=== PATIENT | male | born 1960 | race Caucasian/White ===

== ENCOUNTER → 2016-06-21 | Outpatient (CLI) | payer OTHER ==
--- NOTE | 2016-06-21 13:04 | MR ---
EXAMINATION TYPE: MR cervical spine wo con DATE OF EXAM: 06/21/2016 12:43 PM COMPARISON: 06/23/2014 HISTORY: Cervicalgia TECHNIQUE: Multiplanar, multisequence images of the cervical spine were acquired. C2-C3: No evidence for degenerative disc disease. No disc bulge/herniation or protrusion. No Canal st enosis. Foramina are patent bilaterally. C3-C4: No evidence for degenerative disc disease. No disc bulge/herniation or protrusion. No Canal st enosis. Uncovertebral joint hypertrophy greater on the left results in mild left foraminal encroachme nt. C4-C5: Mild disc desiccation. Mild posterior disc bulge with minimal effacement ventral thecal sac. N o evidence for herniation protrusion or central stenosis. Uncovertebral joint hypertrophy with right foraminal encroachment. C5-C6: Moderate disc desiccation with associated spurring. There is effacement of the ventral thecal sac. Mild central stenosis is present. Broad-based disc bulging capped by spur appears stable.. Bilat eral foraminal encroachment. Minimal anterolisthesis. C6-C7: Moderate disc desiccation with circumferential disc bulge. Mild effacement ventral thecal sac. No evidence for central stenosis or disc herniation. Uncovertebral joint hypertrophy resulting in mi ld bilateral foraminal encroachment. C7-T1: No evidence for degenerative disc disease. No disc bulge/herniation or protrusion. No Canal st enosis. Foramina are patent bilaterally. Cervical segments are intact. Scattered degenerative endplat e marrow change. There is normal alignment. Cervical spinal cord is of normal signal. Craniovertebral junction relationships are within normal limits. IMPRESSION: 1. Multilevel degenerative disc disease and spondylosis. 2. Stable mild central stenosis at C5-C6. 3. Multilevel foraminal encroachment as noted.
== END | disposition home or self-care (01) ==
LOC: RADMRIMAIN 12:13
PROVIDERS: ATTEND Nurse Practitioner Acute Care
DX: M48.02 Spinal stenosis, cervical region (principal); M50.30 Other cervical disc degeneration, unspecified cervical region; M47.812 Spondylosis without myelopathy or radiculopathy, cervical region
CPT/HCPCS: 72141

== ENCOUNTER → 2018-01-28 | Outpatient (CLI) | payer OTHER ==
[2018-01-28 14:38] LABS: HCT 45.9 % (39.0-53.0); HGB 14.8 gm/dL (13.0-17.5); MCH 30.5 pg (25.0-35.0); MCHC 32.1 g/dL (31.0-37.0); MCV 94.9 fL (80.0-100.0); Platelet Count 338 k/uL (150-450); RBC 4.84 m/uL (4.30-5.90); RDW 14.4 % (11.5-15.5)
[2018-01-28 14:43] LABS: Partial Thromboplastin Time 25.7 sec (22.0-30.0); Prothrombin Time 10.8 sec (9.0-12.0)
[2018-01-28 15:03] LABS: Appearance,Urine Clear (Clear); Bilirubin,Urine Negative (Negative); Blood,Urine Negative (Negative); Color,Urine Yellow; Glucose,Urine (UA) Negative (Negative); Ketones,Urine Trace (Negative); Leukocyte Esterase,Urine Negative (Negative); Mucus,Urine Few /hpf; Nitrite,Urine Negative (Negative); PH, Urine 6.5 (5.0-8.0); Protein,Urine 1+ (Negative); RBC,Urine 2 /hpf (0-5); Specific Gravity,Urine 1.023 (1.001-1.035); Urobilinogen,Urine <2.0 mg/dL (<2.0); WBC,Urine 1 /hpf (0-5)
[2018-01-28 15:30] LABS: Anion Gap 10 mmol/L; Blood Urea Nitrogen 16 mg/dL (9-20); Carbon Dioxide 25 mmol/L (22-30); Chloride 100 mmol/L (98-107); Potassium 4.2 mmol/L (3.5-5.1); Sodium 135 mmol/L (137-145)
== END | disposition home or self-care (01) ==
LOC: LABPAT 14:02
PROVIDERS: ATTEND Orthopaedic Surgery
DX: Z01.812 Encounter for preprocedural laboratory examination (principal)
CPT/HCPCS: 80051; 81001; 82565; 84520; 85027; 85610; 85730; 87070

== ENCOUNTER → 2018-05-06 | Outpatient (CLI) | payer OTHER ==
[2018-05-06 10:48] LABS: HCT 47.4 % (39.0-53.0); HGB 15.1 gm/dL (13.0-17.5); MCH 31.2 pg (25.0-35.0); MCHC 31.9 g/dL (31.0-37.0); MCV 97.9 fL (80.0-100.0); Mean Platelet Volume 6.5; Platelet Count 296 k/uL (150-450); RBC 4.84 m/uL (4.30-5.90); RDW 14.5 % (11.5-15.5)
[2018-05-06 11:06] LABS: Anion Gap 8 mmol/L; Blood Urea Nitrogen 14 mg/dL (9-20); Carbon Dioxide 26 mmol/L (22-30); Chloride 101 mmol/L (98-107); Potassium 5.2 mmol/L (3.5-5.1); Sodium 135 mmol/L (137-145)
== END ==
LOC: LABPAT 10:21
PROVIDERS: ATTEND Internal Medicine Interventional Cardiology
DX: Z01.812 Encounter for preprocedural laboratory examination (principal); I25.5 Ischemic cardiomyopathy; I25.10 Atherosclerotic heart disease of native coronary artery without angina pectoris
CPT/HCPCS: 36415; 80051; 82565; 84520; 85027

== ENCOUNTER 2018-05-12 06:01 | Day surgery (SDC) | payer OTHER ==
[2018-05-06 14:45] VITALS: BMI 27.2
[~2018-05-12 06:01] MED LIST: ALPRAZolam 0.25 MG TAB PO PRN; ALPRAZolam 0.5 MG TAB PO PRN; NITROGLYCERIN SL TABS 0.4 MG TAB SUBLINGUAL PRN; SODIUM CHLORIDE 0.9% 1,000 ML in EMPTY BAG 1 BAG IV ONE
[2018-05-12] MEDS ORDERED: ASPIRIN 325 MG TAB PO ONE (07:00)
[2018-05-12] MEDS ORDERED: ATORVASTATIN 80 MG TAB PO ONE (07:00)
[2018-05-12] MEDS ORDERED: fentaNYL (PF) 50 MCG/ML 2 ML AMP IVP ONE (07:35)
[2018-05-12] MEDS ORDERED: LIDOCAINE 1% INJ 10MG/ML (20 ML MDV) SQ ONE (07:36)
[2018-05-12] MEDS ORDERED: VERAPAMIL SYRINGE (5 MG/10 ML) INTRAARTER ONE (07:37)
[2018-05-12] MEDS ORDERED: CLOPIDOGREL 75 MG TAB PO ONE (07:55)
[2018-05-12] MEDS ORDERED: IOPAMIDOL-370 125ML BTL INJ ONE (08:12)
[2018-05-12] MEDS ORDERED: IOPAMIDOL-370 100ML BTL INJ ONE (08:46)
[2018-05-12] MEDS ORDERED: NITROGLYCERIN SL TABS 0.4 MG TAB SUBLINGUAL PRN (09:09)
[2018-05-12] MEDS ORDERED: MAG HYDROX/AL HYDROX/SIMETH 30 ML CUP PO PRN (09:09)
[2018-05-12] MEDS ORDERED: RX INFO: IV CONTRAST WAS GIVEN 1 EACH MISC MISCELLANE PRN (09:09)
[2018-05-12] MEDS ORDERED: ZOLPIDEM 5 MG TAB PO PRN (09:09)
[2018-05-12] MEDS ORDERED: ATROPINE SULFATE 0.1 MG/ML 10ML SYRINGE IV PRN (09:09)
[2018-05-12] MEDS ORDERED: oxyCODONE-APAP 10-325MG 1 EACH TAB PO PRN (09:10)
[2018-05-12] MEDS ORDERED: CYCLOBENZAPRINE 10 MG TAB PO PRN (09:10)
[2018-05-12] MEDS ORDERED: SODIUM CHLORIDE 0.9% 1,000 ML IV SCH (09:15)
--- NOTE | 2018-05-12 09:29 | CC ---
CARDIAC CATHETERIZATION REPORT Mr. Pond is a 57-year-old male with known history of coronary artery disease, status post percutaneous revascularization of the right coronary artery in 2004, history of hypertension, hyperlipidemia, chronic tobacco use, who recently underwent a myocardial perfusion imaging that revealed a severe cardiomyopathy with defect inferiorly. In view of that, recommendation was made regarding cardiac catheterization. The procedure as well as the risks and complications were discussed with the patient who is in full understanding and agreement. PROCEDURE: Patient was brought to nursery laborer in a fasting semi-sedated state after receiving fentanyl and Benadryl and achieving moderate conscious sedated state. Using Xylocaine anesthesia in the Seldinger technique a 6-Ukrainian sheath was introduced in the right radial artery. Selective right and left coronary angiography was performed using 5- Ukrainian 3.5 bend right and left Yassine catheters. Multiple views of the coronary artery including hemiaxial views were obtained. The right Yassine catheter was used to cross the aortic valve and left ventricular end-diastolic pressure was calculated. Following that, catheter and sheaths were removed, images were reviewed. FINDINGS: FLUOROSCOPY: There was severe calcification involving all the coronary arteries. LEFT MAIN: This is a large-sized vessel bifurcating in the left circumflex, left anterior descending artery. Left main coronary artery has no evidence of high- grade stenosis. LEFT ANTERIOR DESCENDING ARTERY: This is a large-sized vessel reaching toward the apex with a wraparound apex segment giving rise to 2 diagonal branches. The left anterior descending artery proximal and mid segment has a 30% to 40% plaque. The rest of the vessel has no high-grade stenosis. LEFT CIRCUMFLEX: This is a large nondominant vessel giving rise to a large obtuse marginal branch. The obtuse marginal branch proximally is very tortuous, heavily calcified and has a 90% stenosis. The rest of the vessel has no high-grade stenosis. RIGHT CORONARY ARTERY: This is a dominant vessel. The stented segment is patent. Right at the takeoff of the acute marginal branch in the distal edge of the stent, the vessel is totally occluded with evidence of ipsilateral and contralateral collaterals. There is a long segment of total occlusion. LEFT VENTRICULOGRAM: Left ventriculogram was not performed. HEMODYNAMICS: There was no gradient across the aortic valve. The left ventricular end- diastolic pressure was 20 mmHg. CONCLUSION: 1. Calcified coronary arteries. 2. Chronically occluded mid right coronary artery. 3. Mild to moderate disease in LAD. 4. Severe disease in the first obtuse marginal branch. RECOMMENDATION: In view of finding anatomy, I recommend proceeding with angioplasty in the left circumflex. The procedure as well as the risks and the complications were discussed with the patient who is in full understanding and agreement. CARI / ALDAIR: [id number] / MTDD
--- NOTE | 2018-05-12 09:53 | PTCA ---
PERCUTANEOUSTRANS CORORONARY ANGIOGRAPHY Mr. Pond is a 57-year-old male with a known history of coronary artery disease who had an abnormal myocardial perfusion imaging and underwent cardiac catheterization revealed critical stenosis involving the first obtuse marginal branch. In view of that, recommendation was made regarding angioplasty and stenting the procedure as well as the risks and complications were discussed with the patient who is in full understanding and agreement. PROCEDURE: A 6-Latvian FL 3.5 guiding catheter introduced in the system. After cannulating the left main, a 0.014 balanced medium weight J-wire was advanced across the lesion, positioned distally. Subsequently, a 0.014 whisper J-wire was advanced and positioned next to the first one in a dorothea fashion. Subsequently a 2.5 x 12 mm Trek balloon was advanced and one inflation at 10 atmospheres was done. Following that the balloon was removed and attempt to advance a 3.0 x 12 mm Xience Betty stent were unsuccessful, that stent was removed. The BMW J-wire was removed and a GuideLiner was introduced in the system. With the help of the GuideLiner, there was inability to advance the stent. At that point, the stent was removed and a 0.014 Whisper J-wire was advanced with a FineCross catheter and subsequently the wire was exchanged through the FineCross to a Mailman wire positioned distally. The second wire was a whisper J. In spite of the double wiring, there was inability to advance a 3.0 x 12 mm Xience Betty and a 2.0 x 12 mm Metaline Resolute stent. At that point, the stents were removed and the whisper J- wire was removed and the GuideLiner was introduced over the Mailman and with the help of the GuideLiner the 3.0 x 12 mm Xience Betty stent was advanced, deployed and post dilated at 16 atmospheres. After the last inflation, after appropriate wait the balloon and the guidewire were withdrawn back in the guiding catheter. Images were obtained and repeated. Those images reveal stable successful stenting. At that point, the guiding catheter, the balloon and the guidewire were removed. The sheath was removed. Hemostasis was obtained with deployment of a TR band. There was no immediate complication, Patient was returned to his room in stable condition. Of note, the patient had no chest discomfort or EKG changes with the inflation. He received a total of of 13,000 units of intravenous heparin. His ACT was followed. He received intra- arterial verapamil. RESULTS: Successful stenting of the first obtuse marginal branch in a heavily calcified tortuous segment with reduction of stenosis from 90% to 0%. RECOMMENDATION: Patient be continued on aspirin, Plavix, beta shell, MAURIZIO inhibitor, and statin. The importance of dual antiplatelet treatment were discussed with the patient and his family and are in full understanding and agreement. Duration of procedure is 73 minutes. MMKELLIE / MORRON: [id number] / ANDRES
[2018-05-12] MEDS: PREGABALIN 75 MG CAP PO SCH (19:44)
[2018-05-12] MEDS ORDERED: TAMSULOSIN 0.4 MG CAP.ER.24H PO SCH (21:00)
[2018-05-13 07:23] LABS: Anion Gap 7 mmol/L; Blood Urea Nitrogen 18 mg/dL (9-20); Calcium 8.9 mg/dL (8.4-10.2); Carbon Dioxide 24 mmol/L (22-30); Chloride 106 mmol/L (98-107); Glucose 80 mg/dL (74-99); Potassium 4.5 mmol/L (3.5-5.1); Sodium 137 mmol/L (137-145)
[2018-05-13 07:50] VITALS: BP 108/76; PULSE 110; RESP 18; TEMP 98
[2018-05-13] MEDS: PREGABALIN 75 MG CAP PO SCH (07:54)
[2018-05-13] MEDS ORDERED: METOPROLOL SUCCINATE (ER) 25 MG TAB.ER.24H PO SCH (09:00)
[2018-05-13] MEDS ORDERED: ASPIRIN 81 MG PO SCH (09:00)
[2018-05-13] MEDS ORDERED: LOSARTAN 50 MG TAB PO SCH (09:00)
[2018-05-13] MEDS ORDERED: CHOLECALCIFEROL 1,000 UNIT TAB PO SCH (09:00)
[2018-05-13] MEDS ORDERED: ATORVASTATIN 40 MG TAB PO SCH (09:00)
[2018-05-13] MEDS ORDERED: CLOPIDOGREL 75 MG TAB PO SCH (09:00)
--- NOTE | 2018-05-13 09:20 | PN ---
PROGRESS NOTE Mr. Pond is a 57-year-old male with known history of coronary artery disease who presented with abnormal myocardial perfusion imaging, underwent cardiac catheterization and stenting of his left circumflex. He was found to have a chronically occluded right coronary artery. He is doing well today. His breathing is stable. He had no chest pain. No dizziness. No palpitation. No nausea. He continued to be on aspirin once a day, Plavix 75 mg daily, Lipitor 40 mg daily, losartan 50 mg daily, metoprolol succinate 25 mg daily, Lyrica 150 mg twice a day, and Flomax 0.4 mg daily. PHYSICAL EXAMINATION: Blood pressure 108/70 with a heart rate in the 80s. LUNGS: Clear. HEART: Regular rate and rhythm, S1, S2. No S3. No rub. ABDOMEN: Soft, nontender. EXTREMITIES: No edema, right radial pulse intact. LABORATORY STUDIES: EKG revealed no acute changes. BUN and creatinine 18 and 0.73, potassium 4.5. IMPRESSION: 1. Status post stenting of the left circumflex. 2. Chronically occluded right coronary artery with cardiomyopathy. 3. Hyperlipidemia. RECOMMENDATION: Patient will be discharged home today and followed in the office in 1 week. MMODL / IJN: [id number] /
== END 2018-05-13 10:37 | disposition home or self-care (01) ==
LOC: CATHCVL 06:01 → 3SCARD 15:12 → CATHCVL 05-13 10:37
PROVIDERS: ATTEND Internal Medicine Interventional Cardiology
DX: I25.10 Atherosclerotic heart disease of native coronary artery without angina pectoris (principal); I25.84 Coronary atherosclerosis due to calcified coronary lesion; I25.82 Chronic total occlusion of coronary artery; I77.1 Stricture of artery; I10 Essential (primary) hypertension; R94.39 Abnormal result of other cardiovascular function study; E78.2 Mixed hyperlipidemia; E78.00 Pure hypercholesterolemia, unspecified; Z82.49 Family history of ischemic heart disease and other diseases of the circulatory system; F17.210 Nicotine dependence, cigarettes, uncomplicated; I25.5 Ischemic cardiomyopathy; I25.2 Old myocardial infarction; Z95.5 Presence of coronary angioplasty implant and graft; Z79.02 Long term (current) use of antithrombotics/antiplatelets; Z79.82 Long term (current) use of aspirin; Z79.899 Other long term (current) drug therapy; Z79.1 Long term (current) use of non-steroidal anti-inflammatories (NSAID); Z79.891 Long term (current) use of opiate analgesic
CPT/HCPCS: 93458; 85347; 80048; C9600; C1769 ×5; C1887 ×3; C1894; C1725; C1874 ×2; J2001; J3010; J1644; Q9967 ×2

== ENCOUNTER → 2020-02-25 | Outpatient (CLI) | payer OTHER ==
--- NOTE | 2020-03-02 11:18 | P.ARTDOP ---
Arterial Doppler LOWER EXTREMITY ARTERIAL DOPPLER: DATE OF SERVICE: 02/25/2020 Reason for study: Left leg claudication. Doppler waveforms: Multiphasic bilaterally. Some blunting and minor diminution of phasicity. Toe waveforms better on the left than the right.. Pulse volume recording: []. Pressure gradients: Gradients bilaterally above the low thigh. Ankle-brachial indices: 0.87 on the right and 0.9 on the left. Toe brachial indices: 0.47 on the right, 0.66 on the left Impression: Suggests mild bilateral fem-pop disease. Cannot exclude iliac component. Findings suggest the right would actually be worse than the left. Clinical correlation recommended..
== END | disposition home or self-care (01) ==
LOC: RADUSWWP 12:51
PROVIDERS: ATTEND Family Medicine
DX: M79.604 Pain in right leg (principal); M79.605 Pain in left leg; I25.10 Atherosclerotic heart disease of native coronary artery without angina pectoris
CPT/HCPCS: 93923